=== PATIENT | female | born 1940 | race Caucasian/White ===

== ENCOUNTER 2022-12-06 15:18 | Emergency (ER) | payer MEDICARE, BC ==
[2022-12-06 16:11] LABS: ESTIMATED GFR 32 mL/min (>60)
== END 2022-12-06 18:25 | disposition home or self-care (01) ==
LOC: FB.ED 15:18
DX: M54.12 Radiculopathy, cervical region (principal); M79.622 Pain in left upper arm; E87.1 Hypo-osmolality and hyponatremia; N18.30 Chronic kidney disease, stage 3 unspecified; D63.1 Anemia in chronic kidney disease
CPT/HCPCS: 36415; 70450; 71045; 72125; 80053; 84484; 85025; 86140; 93005; 99284